=== PATIENT | female | born 1995 | race African-American/Black ===

== ENCOUNTER 2018-07-26 17:23 | Emergency (ER) | payer MEDICAID ==
[~2018-07-26] VITALS: Ht 162.6 cm; Wt 58.0 kg
[2018-07-26 19:20] VITALS: BP 108/64
[2018-07-26] MEDS ORDERED: IBUPROFEN 600MG TABLET PO ONE (19:30)
[2018-07-26] MEDS ORDERED: DEXAMETHASONE 10 MG/ML VIAL IM ONE (20:00)
== END 2018-07-26 20:17 | disposition home or self-care (01) ==
LOC: ER 17:23
DX: J03.90 Acute tonsillitis, unspecified (principal)
CPT/HCPCS: 81025; 87430; 99283